=== PATIENT | male | born 1965 | race Caucasian/White ===

== ENCOUNTER → 2021-01-05 12:15 | Outpatient (CLI) | payer OTHER, SELFPAY ==
--- NOTE | ~2021-01-05 | MR_ITS ---
EXAMINATION: MR lumbar spine wo con EXAM DATE: 01/05/2021 12:50 INDICATION: lumbago lumbago. Low back pain, bilateral leg tingling. TECHNIQUE: Multi-sequential, multiplanar MR images of the lumbar spine were obtained without contrast . Sagittal T1, T2, T2 fat saturation images. Axial T2 weighted images. There is no prior study for comparison. FINDINGS: There is mild to moderate disc disease L3-L5 and T10-L2. The conus medullaris terminates at the T12-L1 level and has normal signal intensity and morphology. There are no suspicious marrow sig nal abnormalities. There is 2 mm anterolisthesis L4 on L5. The vertebral bodies are otherwise aligned . Mild to moderate chronic anterior wedging of the T11 vertebral body. There are no suspicious marrow signal abnormalities. Paraspinal soft tissue is unremarkable. Level by level evaluation: T12-L1: There is a mild diffuse disc bulge. Facet arthropathy: Mild. Neural foraminal stenosis: No stenosis. Central canal stenosis: No stenosis. L1-L2: There is a mild diffuse disc bulge. Facet arthropathy: Mild. Neural foraminal stenosis: No stenosis. Central canal stenosis: No stenosis. L2-L3: Disc does not extend beyond the endplate margin. Facet arthropathy: Mild. Neural foraminal stenosis: No stenosis. Central canal stenosis: No stenosis. L3-L4: There is a mild diffuse disc bulge. Facet arthropathy: Mild. Neural foraminal stenosis: Mild to moderate left, mild right. Central canal stenosis: Mild. L4-L5: There is a mild to moderate diffuse disc bulge. Facet arthropathy: Moderate. Neural foraminal stenosis: Moderate bilateral. Central canal stenosis: Moderate. L5-S1: There is a mild to moderate diffuse disc bulge. Facet arthropathy: Mild. Neural foraminal stenosis: Mild to moderate left, mild right. Central canal stenosis: No stenosis. IMPRESSION: 1. L4-5 moderate central canal and neural foraminal stenosis. Reviewed, dictated and finalized at location B. R SOFTENER SERVICER AND INSTALLER
== END ==
PROVIDERS: PCP Family Medicine; Visit Provider Nurse Practitioner Family
DX: M48.061 Spinal stenosis, lumbar region without neurogenic claudication (principal)
CPT/HCPCS: 72148

== ENCOUNTER 2021-01-13 08:18 | Outpatient (CLI) | payer OTHER, SELFPAY ==
[2021-01-13 09:20] LABS: Alanine Aminotransferase 46 U/L (16-63); Alkaline Phosphatase 55 U/L (46-116); Anion Gap 7 mmol/L (8-16); Aspartate Amino Transferase 23 U/L (15-37); Bilirubin,Total 0.4 mg/dL (0.00-1.00); Blood Urea Nitrogen 18 mg/dL (7-18); Calcium 8.7 mg/dL (8.5-10.1); Carbon Dioxide 30 mmol/L (21-32); Chloride 106 mmol/L (98-108); Cholesterol 111 mg/dL (0-200); Estimated Glomerular Filt Rate > 60; Glucose 114 mg/dL (70-99); HDL Direct 47 mg/dL (40-60); LDL Cholesterol Calculated 55 mg/dL (<130); Osmolality Calculated 298 mOsm/kg (285-295); Potassium 4.2 mmol/L (3.5-5.1); Sodium 143 mmol/L (136-145); Total Protein 6.6 g/dL (6.4-8.2); Triglycerides 45 mg/dL (0-150)
== END 2021-01-13 08:19 | disposition home or self-care (01) ==
LOC: CHSLAB 08:21
PROVIDERS: PCP Family Medicine; Visit Provider Family Medicine
DX: E78.5 Hyperlipidemia, unspecified (principal); I10 Essential (primary) hypertension
CPT/HCPCS: 36415; 80053; 80061

== ENCOUNTER → 2021-11-21 10:55 | Outpatient (CLI) | payer OTHER, SELFPAY ==
--- NOTE | ~2021-11-21 | XR_ITS ---
XR lumbar spine 2-3V DATE: 11/21/2021 11:29 INDICATION: Spondylolisthesis TECHNIQUE: AP, lateral and coned lateral lumbosacral views COMPARISON: 01/05/2021 MR lumbar spine FINDINGS: Status post posterior and interbody spinal fusion at L4-5. There is chronic moderate anterior wedge compression fracture at T11, present on 01/05/2021 MR lumbar e xamination. Degenerative spurring of the lower thoracic spine There is mild degenerative disc disease at L1-2 and L3-4. No fracture or bone destruction of the lumbar spine is detected. The sacroiliac joints are intact. IMPRESSION: Status post posterior and interbody spinal fusion Chronic T11 compression fracture deformity Mild degenerative disc disease Reviewed, dictated and finalized at location B. NE EDUCATION MANAGER
== END ==
PROVIDERS: Visit Provider Neurological Surgery
DX: M43.16 Spondylolisthesis, lumbar region (principal); Z98.1 Arthrodesis status; S22.080A Wedge compression fracture of T11-T12 vertebra, initial encounter for closed fracture
CPT/HCPCS: 72100

== ENCOUNTER 2022-01-02 12:46 | Emergency (ER) | payer OTHER, SELFPAY ==
--- NOTE | ~2022-01-02 | CT_ITS ---
EXAMINATION: CT abdomen pelvis wo con DATE: 01/02/2022 14:21 INDICATION: Left flank pain. Microscopic hematuria. TECHNIQUE: Computed tomography (CT) of the abdomen and pelvis was performed without intravenous contr ast. Automated exposure control and iterative reconstruction technique were employed. The dose-length product was 1177.86 mGy-cm. COMPARISON: 08/28/2015 FINDINGS: Normal bibasilar atelectasis. Heart size is normal. Atherosclerotic coronary artery calcific lesions. No pericardial or pleural effusion. A few small gallstones at the dependent aspect of the normal-aren earing gallbladder. Liver, spleen, pancreas and bilateral adrenal glands are normal. Bilateral nephro lithiasis with 3 1 mm stones at the right kidney and a single 1 mm stone in the left kidney. There is an obstructing 4 mm stone at the left ureterovesicular junction with mild left hydroureteronephrosis . Bowels including the appendix are normal. Bladder is normal. Prostatomegaly. No free intraperitonea l gas or fluid. No pathologically enlarged abdominal or pelvic lymphadenopathy. Several surgical clip s along the left inguinal canal. L4 laminectomy with combined instrumented anterior and posterior spi nal fusion at L4-L5. Chronic anterior wedging, mild at T10 and T12 and moderate at T11. IMPRESSION: 1. Lateral nephrolithiasis with obstructing 4 mm stone at the left ureterovesicular junction and mild left hydroureteronephrosis. Reviewed, dictated and finalized at location A. H MANAGER IMPRESSION: 1. Lateral nephrolithiasis with obstructing 4 mm stone at the left ureterovesic ular junction and mild left hydroureteronephrosis.
[2022-01-02 12:53] VITALS: BP 171/92; PULSE 84; RESP 16; TEMP 36.8; O2SAT 97
--- NOTE | 2022-01-02 13:16 | ED.BACK ---
HPI - Back Pain/Injury General Chief Complaint: Back Pain/Injury Stated Complaint: possible kidney stone Time Seen by Provider: 01/02/22 13:17 Source: patient Mode of arrival: ambulatory Limitations: no limitations History of Present Illness HPI Narrative: 56-year-old male a history of back surgery(L4-L5 laminectomy /spinal fusion), chronic anterior wedging of T10 /T12 vertebrae, inguinal hernia repair,renal stones presents to the ER with acute onset -- left CVA angle pain since 8:00 a.m. this morning. Pain radiates around the flank to his groin. No nausea/ vomiting / diarrhea. No fever. MD elicited complaint: back injury ( No history of trauma.) Pertinent past history: prior back pain and kidney stones Onset (ago): hour(s) ( Started 5 hours ago.) Timing: intermittent Severity: severe Similar Symptoms Previously: Yes Quality: aching Location: left flank Radiation: none Exacerbating factors: movement and supine positioning Relieving factors: movement and sitting upright Associated symptoms: denies other symptoms Work related injury: No Related Data Home Medications Medication Instructions Recorded Confirmed amlodipine 10 mg PO DAILY 01/02/22 01/02/22 aspirin 81 mg PO DAILY 01/02/22 01/02/22 diclofenac sodium [Voltaren] 2 g TOPICAL QID 01/02/22 01/02/22 doxazosin 2 mg PO DAILY 01/02/22 01/02/22 meloxicam 15 mg PO DAILY 01/02/22 01/02/22 valsartan 160 mg PO DAILY 01/02/22 01/02/22 zaleplon 10 mg PO HS 01/02/22 01/02/22 Allergies Allergy/AdvReac Type Severity Reaction Status Date / Time cefuroxime [From Ceftin] Allergy Hives Verified 01/02/22 13:07 Review of Systems Review of Systems: All systems reviewed & are unremarkable except as noted in HPI and below Constitutional: Constitutional: Reports as per HPI, Reports no additional constitutional complaints and Reports chills Eyes: Eyes: Reports as per HPI and Reports no additional eye complaints ENT: Reports system reviewed and no additional complaints, except as documented Cardiovascular: Cardiovascular: Reports as per HPI and Reports no additional cardiovascular complaints Respiratory: Respiratory: Reports as per HPI and Reports no additional respiratory complaints Gastrointestinal: Gastrointestinal: Reports as per HPI and Reports no additional gastrointestinal complaints Genitourinary: Genitourinary: Reports no additional male genitourinary complaints and Reports as per HPI Musculoskeletal: Musculoskeletal: Reports no additional musculoskeletal complaints and Reports as per HPI Integumentary/Breasts: Skin/Breast: Reports system reviewed and no additional complaints, except as docu Neurologic: Reports system reviewed and no additional complaints, except as documented and Reports as per HPI Psychiatric: Psychiatric: Reports no additional psychiatric complaints and Reports as per HPI Endocrine: Endocrine: Reports no additional endocrine complaints Hematologic/Lymphatic: Hematologic/Lymphatic: Reports no additional hematologic/lymphatic complaints and Reports as per HPI Allergic/Immunologic: Allergic/Immunologic: Reports no additional allergic/immunologic complaints PMFSH Past Medical History Medical History Back pain with history of spinal surgery Kidney stones Exam Narrative: physical examination is unremarkable. Const: General: no acute distress and alert Orientation/consciousness: patient oriented x3 HENMT: Head: normal to inspection Eyes: Conjunctivae: conjunctivae normal Pupils: Equal, round and reactive pupils present EOM: EOMs intact bilaterally Neck: Neck: normal visual inspection and no lymphadenopathy Chest: Chest palpation & inspection: normal inspection of the chest Resp: Effort & Inspection: normal respiratory effort Auscultation: clear to auscultation bilaterally Cardio: Rate: regular rate Rhythm: regular rhythm GI: GI Palp: Yes Soft to palpation Other: Abd
[2022-01-02 13:40] LABS: Basophils Absolute Auto 0.02 K/mm3 (0.00-0.10); Basophils Percent Auto 0.3 % (0.0-1.0); Eosinophils Absolute Auto 0.03 K/mm3 (0.02-0.50); Eosinophils Percent Auto 0.4 % (1.0-6.0); Hematocrit 43.3 % (40.0-54.0); Hemoglobin 14.7 g/dL (14.0-18.0); Immature Granulocyte Absolute 0.02 K/mm3 (0.00-0.00); Immature Granulocyte Percent A 0.3 % (0.0-0.0); Lymphocytes Absolute Auto 0.71 K/mm3 (1.10-4.50); Lymphocytes Percent Auto 9.8 % (18.0-42.0); Mean Corpuscular HGB Conc 33.9 g/dL (32.0-36.0); Mean Corpuscular Hemoglobin 30.1 pg (27.0-31.0); Mean Corpuscular Volume 88.7 fL (78.0-102.0); Monocytes Percent Auto 6.9 % (2.0-11.0); Neutrophils Absolute Auto 5.9 K/mm3 (1.7-7.2); Neutrophils Percent Auto 82.3 % (50.0-70.0); Platelet Count Result 185 K/mm3 (150-420); Red Blood Count 4.88 M/mm3 (4.70-6.10); Red Cell Distribution Width 13.5 % (11.6-14.4); White Blood Count 7.2 K/mm3 (4.8-10.8)
[2022-01-02 13:42] LABS: Add Urine Microscopic? YES; Appearance Urine Clear (Clear); Bilirubin Urine Negative (Negative); Blood Urine 1+ (Negative); Color Urine Light Yellow (Yellow); Glucose Urine UA Negative (Negative); Ketones Urine Negative (Negative); Leukocyte Esterase Ur Negative (Negative); Nitrate Urine Negative (Negative); Protein Urine Negative (Negative); Urobilinogen Urine 0.2 mg/dL (0.2-1.0)
[2022-01-02] MEDS: SODIUM CHLORIDE 0.9% IV 500 ML 999 ML IV CONT (13:44)
[2022-01-02] MEDS: KETOROLAC 30 MG/ML VIAL (*BKC) IV PUSH (13:46)
[2022-01-02 13:48] LABS: Bacteria Urine None seen /hpf; Squamous Epithelial Cell Urine Rare /hpf (Few); WBC Urine 0-3 /hpf (0-3)
[2022-01-02 13:52] LABS: Prothrombin Time 10.5 Seconds (9.50-12.10)
[2022-01-02 13:56] LABS: Alanine Aminotransferase 43 U/L (16-63); Albumin Level 4.4 g/dL (3.4-5.0); Alkaline Phosphatase 65 U/L (46-116); Anion Gap 10 mmol/L (8-16); Aspartate Amino Transferase 25 U/L (15-37); Bilirubin,Total 0.5 mg/dL (0.00-1.00); Blood Urea Nitrogen 18 mg/dL (7-18); Carbon Dioxide 27 mmol/L (21-32); Chloride 103 mmol/L (98-108); Estimated CRCL calculation 81 ml/min; Estimated Glomerular Filt Rate 58; Glucose 130 mg/dL (70-99); Lipase 124 U/L (73-393); Osmolality Calculated 293 mOsm/kg (285-295); Potassium 4.4 mmol/L (3.5-5.1); Sodium 140 mmol/L (136-145); Total Protein 7.8 g/dL (6.4-8.2)
[2022-01-02 14:27] VITALS: BP 161/93; PULSE 75; RESP 16; TEMP 36.4; O2SAT 97
[2022-01-02 15:23] VITALS: BP 164/95; PULSE 84; RESP 16; TEMP 36.7; O2SAT 97
== END 2022-01-02 15:30 | disposition home or self-care (01) ==
PROVIDERS: Emergency Provider Internal Medicine Critical Care Medicine; PCP Family Medicine
DX: N20.1 Calculus of ureter (principal); R10.9 Unspecified abdominal pain
CPT/HCPCS: 36415; 74176; 80053; 81001; 83690; 85025; 85610; 96361; 96374; 99284; J1885; J7040

== ENCOUNTER 2022-01-26 08:11 | Outpatient (CLI) | payer OTHER, SELFPAY ==
[2022-01-26 09:57] LABS: Alanine Aminotransferase 42 U/L (16-63); Alkaline Phosphatase 55 U/L (46-116); Anion Gap 8 mmol/L (8-16); Aspartate Amino Transferase 23 U/L (15-37); Bilirubin,Total 0.3 mg/dL (0.00-1.00); Blood Urea Nitrogen 20 mg/dL (7-18); Calcium 8.8 mg/dL (8.5-10.1); Carbon Dioxide 26 mmol/L (21-32); Chloride 108 mmol/L (98-108); Cholesterol 131 mg/dL (0-200); Estimated Glomerular Filt Rate > 60; Glucose 108 mg/dL (70-99); HDL Direct 38 mg/dL (40-60); LDL Cholesterol Calculated 86 mg/dL (<130); Osmolality Calculated 297 mOsm/kg (285-295); Potassium 4.6 mmol/L (3.5-5.1); Prostate Specific Antigen 1.4 ng/mL (< OR = 4.0); Sodium 142 mmol/L (136-145); Total Protein 6.8 g/dL (6.4-8.2); Triglycerides 37 mg/dL (0-150)
== END 2022-01-26 08:12 | disposition home or self-care (01) ==
LOC: CHSLAB 08:13
PROVIDERS: PCP Family Medicine; Visit Provider Family Medicine
DX: E78.5 Hyperlipidemia, unspecified (principal); I10 Essential (primary) hypertension; Z12.5 Encounter for screening for malignant neoplasm of prostate
CPT/HCPCS: 36415; 80053; 80061; 84153; G0103

== ENCOUNTER → 2022-03-18 16:06 | Outpatient (CLI) | payer OTHER, SELFPAY ==
--- NOTE | ~2022-03-18 | XR_ITS ---
EXAM: XR lumbar spine 2-3V HISTORY: Spondylolisthesis COMPARISON: 11/21/2021. FINDINGS: L4-5 posterior fusion hardware. Interbody devices in good position. No hardware-related co mplication. Exaggerated lumbar lordosis. Stable T11 compression fracture. Multilevel mild and moderat e disc space narrowing and marginal osteophytosis. Multilevel facet arthropathy. IMPRESSION: Stable lumbar fusion hardware and mild-moderate degenerative changes in the lumbar spine. Reviewed, dictated and finalized at location K. IMPRESSION: Stable lumbar fusion hardware and mild-moderate degenerative changes in the lum bar spine.
== END ==
PROVIDERS: Visit Provider Neurological Surgery
DX: M43.16 Spondylolisthesis, lumbar region (principal); Z98.1 Arthrodesis status; M48.54XA Collapsed vertebra, not elsewhere classified, thoracic region, initial encounter for fracture
CPT/HCPCS: 72100

== ENCOUNTER → 2022-09-06 15:58 | Outpatient (CLI) | payer OTHER, SELFPAY ==
--- NOTE | ~2022-09-06 | XR_ITS ---
EXAMINATION: XR lumbar spine 2-3V DATE: 09/06/2022 16:16 INDICATION: Spondylolisthesis. TECHNIQUE: 3 views of lumbar spine were obtained. COMPARISON: Lumbar radiographs 03/18/2022, CT abdomen and pelvis 01/02/2022 FINDINGS: There is 5 degrees levocurvature of thoracolumbar spine. There is mild chronic anterior wed ging of T12 vertebral body. Partially visualized is a chronic compression fracture of T11. There are changes of anterior and posterior fusion procedures at L4-L5 with interbody devices and pedicle screw s. There is mildly decreased disc height at T12-L1 and L3-L4. There is multilevel mild facet joint os teoarthritis. IMPRESSION: 1. Anterior and posterior fusion procedures at L4-L5. 2. Mild lumbar spondylosis. Reviewed, dictated and finalized at location B.
== END ==
PROVIDERS: PCP Neurological Surgery; Visit Provider Neurological Surgery
DX: M43.10 Spondylolisthesis, site unspecified (principal); M48.54XA Collapsed vertebra, not elsewhere classified, thoracic region, initial encounter for fracture; M47.816 Spondylosis without myelopathy or radiculopathy, lumbar region; Z98.1 Arthrodesis status
CPT/HCPCS: 72100

== ENCOUNTER 2022-09-09 07:14 | Outpatient (CLI) | payer OTHER, SELFPAY ==
[2022-09-09 08:01] LABS: Cholesterol 144 mg/dL (0-200); Free T4 Free Thyroxine 0.86 ng/dL (0.76-1.46); HDL Direct 41 mg/dL (40-60); LDL Cholesterol Calculated 81 mg/dL (<130); NT Pro B Type Natriuretic Pept 23 pg/mL (0-125); Thyroid Stimulating Hormone 1.21 uIU/mL (0.36-3.74); Triglycerides 109 mg/dL (0-150)
== END 2022-09-09 07:15 | disposition home or self-care (01) ==
LOC: CHSLAB 07:20
PROVIDERS: Visit Provider Internal Medicine Cardiovascular Disease
DX: R06.00 Dyspnea, unspecified (principal); R53.83 Other fatigue
CPT/HCPCS: 36415; 80061; 83880; 84439; 84443

== ENCOUNTER 2022-10-07 07:00 | Outpatient (CLI) | payer OTHER, SELFPAY ==
[2022-10-07 07:41] LABS: Anion Gap 6 mmol/L (8-16); Blood Urea Nitrogen 19 mg/dL (7-18); Calcium 8.8 mg/dL (8.5-10.1); Carbon Dioxide 29 mmol/L (21-32); Chloride 105 mmol/L (98-108); Estimated Glomerular Filt Rate > 60; Glucose 113 mg/dL (70-99); NT Pro B Type Natriuretic Pept 18 pg/mL (0-125); Osmolality Calculated 293 mOsm/kg (285-295); Sodium 140 mmol/L (136-145)
[2022-10-12 03:32] LABS: Lipoprotein A 26 nmol/L (<75)
== END 2022-10-07 07:01 | disposition home or self-care (01) ==
LOC: CHSLAB 07:04
PROVIDERS: Visit Provider Internal Medicine Cardiovascular Disease
DX: R06.09 Other forms of dyspnea (principal); R53.83 Other fatigue; I10 Essential (primary) hypertension; R94.39 Abnormal result of other cardiovascular function study
CPT/HCPCS: 36415; 80048; 83695; 83880

== ENCOUNTER 2024-01-03 08:12 | Outpatient (CLI) | payer OTHER, SELFPAY ==
[2024-01-03 08:48] LABS: Basophils Absolute Auto 0.03 K/mm3 (0.00-0.10); Basophils Percent Auto 0.6 % (0.0-1.0); Eosinophils Absolute Auto 0.04 K/mm3 (0.02-0.50); Eosinophils Percent Auto 0.8 % (1.0-6.0); Hematocrit 40.4 % (40.0-54.0); Hemoglobin 13.4 g/dL (14.0-18.0); Immature Granulocyte Absolute 0.05 K/mm3 (0.00-0.00); Lymphocytes Absolute Auto 1.01 K/mm3 (1.10-4.50); Lymphocytes Percent Auto 20.2 % (18.0-42.0); Mean Corpuscular HGB Conc 33.2 g/dL (32.0-36.0); Mean Corpuscular Hemoglobin 29.8 pg (27.0-31.0); Mean Corpuscular Volume 89.8 fL (78.0-102.0); Mean Platelet Volume 10.3 fl (8.7-11.0); Neutrophils Absolute Auto 3.4 K/mm3 (1.7-7.2); Neutrophils Percent Auto 67.4 % (50.0-70.0); Platelet Count Result 208 K/mm3 (150-420); Red Cell Distribution Width 12.9 % (11.6-14.4)
== END 2024-01-03 08:13 | disposition home or self-care (01) ==
PROVIDERS: PCP Family Medicine
DX: I25.10 Atherosclerotic heart disease of native coronary artery without angina pectoris (principal); I25.84 Coronary atherosclerosis due to calcified coronary lesion
CPT/HCPCS: 36415; 85025

== ENCOUNTER 2024-03-13 07:58 | Outpatient (CLI) | payer OTHER, SELFPAY ==
[2024-03-13 08:57] LABS: Basophils Absolute Auto 0.03 K/mm3 (0.00-0.10); Basophils Percent Auto 0.6 % (0.0-1.0); Eosinophils Absolute Auto 0.04 K/mm3 (0.02-0.50); Eosinophils Percent Auto 0.8 % (1.0-6.0); Hemoglobin 13.5 g/dL (14.0-18.0); Immature Granulocyte Absolute 0.03 K/mm3 (0.00-0.00); Immature Granulocyte Percent A 0.6 % (0.0-0.0); Lymphocytes Absolute Auto 1.03 K/mm3 (1.10-4.50); Lymphocytes Percent Auto 20.8 % (18.0-42.0); Mean Corpuscular HGB Conc 32.1 g/dL (32-36); Mean Corpuscular Hemoglobin 29.5 pg (27.0-31.0); Mean Corpuscular Volume 91.9 fL (78.0-102.0); Mean Platelet Volume 10.1 fl (8.7-11.0); Monocytes Absolute Auto 0.53 K/mm3 (0.10-0.90); Monocytes Percent Auto 10.7 % (2.0-11.0); Neutrophils Absolute Auto 3.29 K/mm3 (1.70-7.20); Neutrophils Percent Auto 66.5 % (50.0-70.0); Platelet Count Result 204 K/mm3 (150-420); Red Blood Count 4.57 M/mm3 (4.70-6.10); Red Cell Distribution Width 13.1 % (11.6-14.4)
[2024-03-13 09:11] LABS: INR 0.9; Prothrombin Time 10.2 Seconds (9.50-12.1)
[2024-03-13 09:33] LABS: Anion Gap 7 mmol/L (4-12); Blood Urea Nitrogen 17 mg/dL (7-18); Calcium 8.8 mg/dL (8.5-10.1); Carbon Dioxide 31 mmol/L (21-32); Chloride 104 mmol/L (98-108); Estimated Glomerular Filt Rate > 60; Glucose 122 mg/dL (70-99); Osmolality Calculated 296 mOsm/kg (285-295); Potassium 4.4 mmol/L (3.5-5.1); Sodium 142 mmol/L (136-145)
== END 2024-03-13 07:59 | disposition home or self-care (01) ==
LOC: CHSLAB 08:02
PROVIDERS: PCP Family Medicine; Visit Provider Internal Medicine Cardiovascular Disease
DX: I25.10 Atherosclerotic heart disease of native coronary artery without angina pectoris (principal); I25.84 Coronary atherosclerosis due to calcified coronary lesion; R94.39 Abnormal result of other cardiovascular function study; I10 Essential (primary) hypertension
CPT/HCPCS: 36415; 80048; 85025; 85610

== ENCOUNTER 2024-03-29 07:02 | Outpatient (CLI) | payer OTHER, SELFPAY ==
[2024-03-29 07:25] LABS: Hematocrit 41.4 % (40.0-54.0); Hemoglobin 13.4 g/dL (14.0-18.0)
[2024-03-29 07:36] LABS: Blood Urea Nitrogen 18 mg/dL (7-18); Estimated Glomerular Filt Rate > 60
== END 2024-03-29 07:03 | disposition home or self-care (01) ==
LOC: CHSLAB 07:08
PROVIDERS: Visit Provider Internal Medicine Cardiovascular Disease
DX: R94.39 Abnormal result of other cardiovascular function study (principal)
CPT/HCPCS: 36415; 82565; 84520; 85014; 85018

== ENCOUNTER 2024-09-18 08:31 | Outpatient (CLI) | payer OTHER, SELFPAY ==
[2024-09-18 09:02] LABS: Hemoglobin 13.6 g/dL (14.0-18.0); Mean Corpuscular Hemoglobin 30.9 pg (27.0-31.0); Mean Corpuscular Volume 90.9 fL (78.0-102.0); Mean Platelet Volume 10.1 fl (8.7-11.0); Platelet Count Result 183 K/mm3 (150-420); Red Cell Distribution Width 13.2 % (11.6-14.4)
[2024-09-18 10:06] LABS: Anion Gap 9 mmol/L (4-12); Blood Urea Nitrogen 13 mg/dL (7-18); Calcium 9.1 mg/dL (8.5-10.1); Carbon Dioxide 29 mmol/L (21-32); Chloride 103 mmol/L (98-108); Cholesterol 97 mg/dL (0-200); Estimated Glomerular Filt Rate > 60; Folic Acid 19.7 ng/mL (8.6->20); Free T4 Free Thyroxine 0.71 ng/dL (0.76-1.46); Glucose 116 mg/dL (70-99); HDL Direct 45 mg/dL (40-60); Iron 72 ug/dL (65-175); LDL Cholesterol Calculated 37 mg/dL (<130); Osmolality Calculated 293 mOsm/kg (285-295); Percent Iron Saturation 20 % (12-57); Potassium 4.1 mmol/L (3.5-5.1); Sodium 141 mmol/L (136-145); Triglycerides 75 mg/dL (0-150); Vitamin B12 581 pg/mL (193-986)
== END 2024-09-18 08:32 | disposition home or self-care (01) ==
LOC: CHSLAB 08:37
DX: Z01.818 Encounter for other preprocedural examination (principal); I25.10 Atherosclerotic heart disease of native coronary artery without angina pectoris
CPT/HCPCS: 36415; 80048; 80061; 82607; 82746; 83540; 83550; 84439; 85027

== ENCOUNTER 2025-05-07 07:15 | Outpatient (CLI) | payer OTHER, SELFPAY ==
--- OUTSIDE RECORDS SUMMARY | 2025-05-07 07:22 | XMS_ITS | Clinical Summary ---
Author Organization [facility] Address [address] [place] [address] Care Team Providers Care Epic Application Coordinator Name Role Phone Yobany Hurd MD Primary Care Provider [phone] Rachel Abdul MD Unavailable [phone] Parker Santillan MD Unavailable [phone] Allergies Active Allergy Reactions Criticality Noted Date Comments Cefuroxime Hives Medium 05/25/2019 Medications zaleplon (SONATA) 10 mg capsule Take 1 capsule (10 mg total) by mouth nightly 1 9 Active amLODIPine (NORVASC) 10 mg tablet Take 1 tablet (10 mg total) by mouth daily Active valsartan (DIOVAN) 160 mg tablet Take 1 tablet (160 mg total) by mouth 2 (two) times a day Active atorvastatin (LIPITOR) 40 mg tablet Take 1 tablet (40 mg total) by mouth nightly 2 Active chlorthalidone (HYGROTON) 25 mg tablet Take 1 tablet (25 mg total) by mouth daily 2 Active gabapentin (NEURONTIN) 600 mg tablet Take 1 tablet (600 mg total) by mouth 2 (two) times a day Active doxazosin (CARDURA) 2 mg tablet Take 1 tablet (2 mg total) by mouth nightly 3 Active aspirin 81 mg enteric coated tablet Take 1 tablet (81 mg total) by mouth daily Active MULTIVITAMIN ORAL Take 1 tablet by mouth nightly Active zaleplon (SONATA) 5 mg capsule Take 1 capsule (5 mg total) by mouth nightly Active clopidogreL (PLAVIX) 75 mg tablet Take 1 tablet (75 mg total) by mouth daily 4 Active traMADoL (ULTRAM) 50 mg tablet Take 1 tablet (50 mg total) by mouth every 6 (six) hours as needed for pain 15 tablet 4 Active cholecalciferol (VITAMIN D-3) 5,000 unit tablet Take 1 tablet (5,000 Units total) by mouth nightly Active magnesium gluconate 200 mg tabletIndicatio ns:hypomagnesem ia Take 2.5 tablets (500 mg total) by mouth nightly Active nitroglycerin (NITROSTAT) 0.[address] 1 tablet (0.4 mg total) under the tongue every 5 (five) minutes as needed for chest pain 4 07/23/20 25 Active oxyCODONE-aceta minophen (PERCOCET) 5-325 mg per tablet Take 1 tablet by mouth every 6 (six) hours as needed for pain 40 tablet 5 Active Additional Information Patient not taking.Reported on 03/08/2025 Active Problems Problem Noted Date Diagnosed Date Arthritis of right knee 12/23/2024 Primary osteoarthritis of right knee 10/25/2024 S/P percutaneous translumina l angioplasty (INSECTICIDE SPRAYER) with stent placement 07/22/2024 Carpal tunnel syndrome, bilateral 12/04/2023 Right carpal tunnel syndrome 10/20/2023 Left carpal tunnel syndrome 10/20/2023 Abnormal stress test 10/09/2023 Coronary artery calcification 10/09/2023 Essential (primary) hypertension 07/12/2022 Fatigue 07/12/2022 Spondylolisthesis at L4-L5 level 09/05/2021 Primary osteoarthritis of both knees 05/25/2019 Encounters Date Type Department Care Team Description 03/08/2025 2:30 PM CDT Office Visit [facility] [address] [place] [address] [address] [place] [phone] Parker Santillan MD Status post total right knee replacement (Primary Dx) 02/14/2025 3:15 PM CDT Therapy [facility] Physical Therapy [address] [place] [address] [address] [place] [address] Krista Blair, PT Status post total right knee replacement (Primary Dx) 02/09/2025 2:15 PM CDT Therapy [facility] Therapy [address] [place] [id number] Brigitte Mendez, INSECTICIDE SPRAYER Status post total right knee replacement (Primary Dx) 02/07/2025 3:30 PM CDT Therapy [facility] Physical Therapy [address] [place] [id number] Bridget Roman, PT Status post total right knee replacement (Primary Dx); Primary osteoarthritis of right knee from Last 3 Months Surgical History Surgery Date Site/Laterality Comments KNEE ARTHROSCOPY Bilateral Yayo, last one right BACK SURGERY 08/31/2021 - 09/30/2021 Lumbar fusion-POSTERIOR LUMBAR INTERBODY FUSION L4-5 CARDIAC STENT PLACEMENT 03/25/2024 1 stent CARPAL TUNNEL RELEASE 08/31/2024 - 09/30/2024 Bilateral Medical History Medical History Date Comments Osteoarthritis Hypertension Kidney stone h/o S/P percutaneous translumina l angioplasty (INSECTICIDE SPRAYER) with stent placement 07/22/2024 Coronary artery disease Obesity Sleep apnea cpap at night Hyperlipidemia Insomnia Primary osteoarthritis of both knees Family History Medical History Relation Name Comments Diabetes Father Diabetes Mother Stroke Mother Heart disease Other Relation Name Status Comments Father Mother Other Social History Tobacco Use Types Packs/Day Years Used Date Smoking Tobacco: Never Smokeless Tobacco: Never Tobacco Cessation:Counseling Given: Not Answered Alcohol Use Standard Drinks/Week Comments Yes 0 (1 standard drink = 0.6 oz pur e alcohol) [facility] Utilities Answer Date Recorded In the past 12 months has Network, oil, or water [employer] threatened to shut off services in your home? No 12/23/2024 Social Connection and Isolation Panel [NHANES] A nswer Date Recorded In a typical week, how many times do you talk on the phone with family, friends, or neighbors? Three times a week 12/23/19 25 How often do you get togethe r with friends or relatives? Three times a week 12/23/2024 How often do you attend chur or scientology services? Never 12/23/2024 Do you belong to any clubs o r organizations such as cheondoism groups, unions, fraternal or athletic groups, or school groups? No 12/23/2024 How often do you attend meet ings of the clubs or organizations you belong to? 1 to 4 times per year 12/23/2024 Are you , , di vorced, , never , or living with a partner? 12/23/2024 AUDIT-C Answer Date Recorded Q1: How often do you have a drink containing alcohol? 4 or more times a week 12/13/2024 Q2: How many drinks containi ng alcohol do you have on a typical day when you are drinking? 3 or 4 Q3: How often do you have si x or more drinks on one occasion? Less than monthly 12/13/2024 Overall Financial Resource Strain (CARDIA) Answe r Date Recorded How hard is it for you to pa y for the very basics like food, housing, medical care, and heating? Not hard at all 12/23/2024 Hunger Vital Sign Answer Date Recorded Within the past 12 months, y ou worried that your food would run out before you got the money to buy more. Never true 12/23/19 25 Within the past 12 months, t he food you bought just didn't last and you didn't have money to get more. Never true 12/23/2024 PRAPARE - Transportation Answer Date Re corded In the past 12 months, has l ack of transportation kept you from medical appointments or from getting medications? No 12/02 In the past 12 months, has l ack of transportation kept you from meetings, work, or from getting things needed for daily living? No 12/23/2024 Housing Stability Vital Sign Answer Romario e Recorded In the last 12 months, was t here a time when you were not able to pay the mortgage or rent on time? No 12/23/2024 In the past 12 months, how m any times have you moved where you were living? 0 12/23/2024 At any time in the past 12 m [facility], were you homeless or living in a group home (including now)? No 12/23/2024 Personal Safety Answer Date Recorded Have you ever been in or are you currently in a harmful physical or emotional relationship or is someone making you feel afraid or unsafe? 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 on fi le Not on file Not on file Obstetrics History Last Filed Vital Signs Vital Sign Reading Time Taken Comments Blood Pressure 137/76 12/24/2024 7:24 AM ASSISTANT CHIEF ENGINEER Pulse 82 12/24/2024 8:17 AM ASSISTANT CHIEF ENGINEER Temperature 37 C (98.6 F) 12/24/2024 7:24 AM ASSISTANT CHIEF ENGINEER Respiratory Rate 20 12/24/2024 7:24 AM ASSISTANT CHIEF ENGINEER Oxygen Saturation 94% 12/24/2024 7:24 AM ASSISTANT CHIEF ENGINEER Inhaled Oxygen Concentration - - Weight 129.3 kg (285 lb) 01/21/2025 10:11 AM ASSISTANT CHIEF ENGINEER Height 188 cm (6' 2) 01/21/2025 10:11 AM ASSISTANT CHIEF ENGINEER Body Mass Index 36.59 01/21/2025 10:11 AM ASSISTANT CHIEF ENGINEER Plan of Treatment Health Maintenance Due Date Last Done Comments Colon Cancer Screening-Colonoscopy 1966 Depression Screening 1966 Hepatitis C Screening 1966 Prostate Cancer Screening-PSA 1966 Hepatitis B Screening 1984 Regular Well Visit/Exam 18-64 1984 Zoster Vaccine (1 of 2) 2016 Covid-19 Vaccine (3 - season) 2024 02/10/2021, 01/13/2021 Influenza Vaccine (Season Ended) 2025 08/12/2023, 08/16/2022, 08/14/2021, Additional history exists DTaP/Tdap/Td Vaccine (2 - Td or Tdap) 02/22/2030 02/23/2020 Pneumococcal vaccine <65 Aged Out No longer eligible based on patient's age to complete this topic Medical Devices Implanted Type Area Reprographics Technician Device Identifier Shelf Expiration Date Model / Serial / Lot Stent Heart Cage And Hardware Back [employer] Simplex P Radiopaque Full Dose Cement Bone Sterile 6191-1-010 - [id number] Implanted:Qty: 1 on 12/23/2024 by Parker Santillan MD at [facility] Right: Knee [employer] 11/30/2026 6191-1-010 / / [id number] [employer] tho Nyla Ii 35mm Resurface Component Patellar [id number] - [id number] Implanted:Qty: 1 on 12/23/2024 by Parker Santillan MD at [facility] Right: Knee [employer]O rtho [id number] 06/30/2034 [id number] / / [id number] [employer]/Or tho Legion 10mm Posterior Stabilize High Flexion Knee 7-8 Insert [id number] - [id number] Implanted:Qty: 1 on 12/23/2024 by Parker Santillan MD at [facility] Right: Knee [employer] rtho [id number] 08/18/2034 [id number] / / [id number] [employer]/Or tho Nyla Ii Cement Knee Right 7 Baseplate Tibial Titanium [id number] - [id number] Implanted:Qty: 1 on 12/23/2024 by Parker Santillan MD at [facility] Right: Knee [employer] rtho [id number] 12/06/2032 [id number] / / [id number] [employer]/Or tho Nyla Ii Legion Spc Posterior Stabilize Knee Right 7 Component [id number] - [id number] Implanted:Qty: 1 on 12/23/2024 by Parker Santillan MD at [facility] Right: Knee [employer]o [id number] 05/20/2034 [id number] / / [id number] Insurance [facility] PL[facility] Advance Directives For more information, please contact: [phone] * Full Code (Latest Code Status on File) Date Activated Date Inactivated Comments 12/23/2024 1:15 PM 12/24/2024 4:37 PM Care Teams Epic Application Coordinator Relationship Specialty Start Date End Date Yobany Hurd MD [address] [facility] [address] [place] [address] PCP - General Family Medicine 10/14/23 Rachel Abdul MD [address] [address] Referring Physician Cardiovascular Disease 09/13/24 Parker Santillan MD [address] [address] Consulting Physician Orthopedic Surgery 12/24/24
--- OUTSIDE RECORDS SUMMARY | 2025-05-07 07:22 | XMS_ITS | Referral Summary ---
Author Organization [facility] Address [address] [place] [id number] Care Team Providers Care Children'S Author Name Role Phone Yobany Hurd MD Primary Care Provider [phone] Rachel Abdul MD Unavailable [phone] Parker Santillan MD Unavailable [phone] Encounters Date Type Department Care Team Description 03/08/2025 2:30 PM CDT Office Visit [facility] Medicine [address] [place] [address] [address] [place] [address] Parker Santillan MD Status post total right knee replacement (Primary Dx) 02/14/2025 3:15 PM CDT Therapy [facility] Physical Therapy [address] [place] [address] [phone] Krista Blair, PT Status post total right knee replacement (Primary Dx) 02/09/2025 2:15 PM CDT Therapy [facility] Physical Therapy [address] [place] [phone] Brigitte Mendez, FHA UNDERWRITER Status post total right knee replacement (Primary Dx) 02/07/2025 3:30 PM CDT Therapy [facility] Physical Therapy [address] [place] [address] [phone] Bridget Roman, PT Status post total right knee replacement (Primary Dx); Primary osteoarthritis of right knee from Last 3 Months Allergies Active Allergy Reactions Criticality Noted Date [...] knee 10/25/2024 S/P percutaneous translumina l angioplasty (FHA UNDERWRITER) with stent placement 07/22/2024 Carpal tunnel syndrome, bilateral 12/04/2023 Right carpal tunnel syndrome 10/20/2023 Left carpal tunnel syndrome 10/20/2023 Abnormal stress test 10/09/2023 Coronary artery calcification 10/09/2023 Essential (primary) hypertension 07/12/2022 Fatigue 07/12/2022 Spondylolisthesis at L4-L5 level 09/05/2021 Primary osteoarthritis of both knees 05/25/2019 Social History Tobacco Use Types Packs/Day Years Used Date Smoking Tobacco: Never Smokeless Tobacco: Never Tobacco Cessation:Counseling Given: Not Answered Alcohol Use Standard Drinks/Week Comments Yes 0 (1 standard drink = 0.6 oz pur e alcohol) [facility] Utilities Answer Date Recorded In the past 12 months has [employer], gas, oil, or water [employer] threatened to shut off services in your home? No 12/23/2024 Social Connection and Isolation Panel [NHANES] A nswer Date Recorded In a typical week, how many times do you talk on the phone with family, friends, or neighbors? Three times a week 12/23/19 How often do you get togethe r with friends or relatives? Three times a week 12/23/2024 How often do you attend chur ch or faith services? Never 12/23/2024 Do you belong to any clubs o r organizations such as evangelical groups, unions, fraternal or athletic groups, or [...] any time in the past 12 m [facility], were you homeless or living in a care home (including now)? No 12/23/2024 Personal Safety Answer Date Recorded Have you ever been in or are you currently in a harmful physical or emotional relationship or is someone making you feel afraid or unsafe? 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 Not on file Not on file Last Filed Vital Signs Vital Sign Reading Time Taken Comments Blood Pressure 137/76 12/24/2024 7:24 AM [employer] Pulse 82 12/24/2024 8:17 AM [employer] Temperature 37 C (98.6 F) 12/24/2024 7:24 AM [employer] Respiratory Rate 20 12/24/2024 7:24 AM [employer] Oxygen Saturation 94% 12/24/2024 7:24 AM [employer] Inhaled Oxygen Concentration - - Weight 129.3 kg (285 lb) 01/21/2025 10:11 AM [employer] Height 188 cm (6' 2) 01/21/2025 10:11 AM [employer] Body Mass Index 36.59 01/21/2025 10:11 AM [employer] Plan of Treatment Not on file Medical Devices Implanted Type Area Special Equipment Technician Device Identifier Shelf Expiration Date Model / Serial / Lot Stent Heart Cage And Hardware Back [employer] Simplex P Radiopaque Full Dose Cement Bone Sterile 6191-1-010 - [id number] Implanted:Qty: 1 on 12/23/2024 by Parker Santillan MD at [facility] Right: Knee [employer] 11/30/2026 6191-1-010 / / [id number] [employer] Nyla Ii 35mm Resurface Component Patellar [id number] - [id number] Implanted:Qty: 1 on 12/23/2024 by Parker Santillan MD at [facility] Right: Knee [employer] [id number] 06/30/2034 [id number] / / [id number] [employer]Or [employer] Legion 10mm Posterior Stabilize High Flexion Knee 7-8 Insert [id number] - [id number] Implanted:Qty: 1 on 12/23/2024 by Parker Santillan MD at [facility] Right: Knee [employer] [id number] 08/18/2034 [id number] / / [id number] [employer] Nyla Ii Cement Knee Right 7 Baseplate Tibial Titanium [id number] - [id number] Implanted:Qty: 1 on 12/23/2024 by Parker Santillan MD at [facility] Right: Knee [employer] [id number] 12/06/2032 [id number] / / [id number] [employer] Nyla Ii Legion Spc Posterior Stabilize Knee Right 7 Component [id number] - [id number] Implanted:Qty: 1 on 12/23/2024 by Parker Santillan MD at [facility] Right: Knee [employer] [id number] 05/20/2034 [id number] Insurance [facility] H[facility]PP[facility] Address: [place] [address] [id number] [id number] Advance Directives For more information, please contact: [phone] * Full Code (Latest Code Status on File) Date Activated Date Inactivated Comments 12/23/2024 1:15 PM 12/24/2024 4:37 PM Care Teams Children'S Author Relationship Specialty Start Date End Date Yobany Hurd MD [address] [facility] [address] [place] [address] PCP - General Family Medicine 10/14/23 Rachel Abdul MD [address] [facility] [address] [place] [address] Referring Physician Cardiovascular Disease 09/13/24 Parker Santillan MD [address] [place] [address] Consulting Physician Orthopedic Surgery 12/24/24
[2025-05-07 08:00] LABS: Alanine Aminotransferase 37 U/L (6-50); Albumin Level 4.1 g/dL (3.5-5.1); Alkaline Phosphatase 67 U/L (38-126); Anion Gap 5 mmol/L (4-12); Aspartate Amino Transferase 34 U/L (17-59); Bilirubin,Total 0.6 mg/dL (0.2-1.3); Blood Urea Nitrogen 18 mg/dL (9-20); Carbon Dioxide 28 mmol/L (22-30); Chloride 106 mmol/L (98-107); Cholesterol 93 mg/dL (0-200); Estimated Glomerular Filt Rate > 60; Glucose 124 mg/dL (65-110); HDL Direct 37 mg/dL; LDL Cholesterol Calculated 37 mg/dL (<130); Osmolality Calculated 290 mOsm/kg (285-295); Potassium 4.1 mmol/L (3.4-5.0); Sodium 139 mmol/L (137-145); Total Protein 6.6 g/dL (6.3-8.2); Triglycerides 94 mg/dL (<150)
[2025-05-07 08:31] LABS: Prostate Specific Antigen 1.2 ng/mL (< OR = 4.0)
== END 2025-05-07 07:16 | disposition home or self-care (01) ==
LOC: CHSLAB 07:19
PROVIDERS: PCP Family Medicine
DX: I25.10 Atherosclerotic heart disease of native coronary artery without angina pectoris (principal); Z12.5 Encounter for screening for malignant neoplasm of prostate; E78.5 Hyperlipidemia, unspecified
CPT/HCPCS: 36415; 80053; 80061; 84153; G0103

== ENCOUNTER 2025-06-18 07:46 | Outpatient (CLI) | payer OTHER, SELFPAY ==
--- OUTSIDE RECORDS SUMMARY | 2025-06-18 07:50 | XMS_ITS | Clinical Summary ---
Author Organization [facility] Address [address] [place] [address] Care Team Providers Care Animal Nursery Worker Name Role Phone Yobany Hurd MD Primary Care Provider [phone] Rachel Abdul MD Unavailable [phone] Parker Santillan MD Unavailable [phone] Allergies Active Allergy Reactions Criticality Noted Date [...] Active doxazosin (CARDURA) 2 mg tablet Take 10 tablets (20 mg total) by mouth nightly 3 Active [...] needed for pain 15 tablet 4 Active cholecalcifero l (VITAMIN D-3) 5,000 unit tablet Take 1 tablet (5,000 Units total) by mouth nightly Active magnesium gluconate 200 mg tabletIndicati ons:hypomagnes emia Take 2.5 tablets (500 mg total) by mouth nightly Active nitroglycerin (NITROSTAT) 0.[address] 1 tablet (0.4 mg total) under the tongue every 5 (five) minutes as needed for chest pain 4 07/23/20 25 Active oxyCODONE-acet aminophen (PERCOCET) 5-325 mg per tablet Take 1 tablet by mouth every 6 (six) hours as needed for pain 40 tablet 5 Active Additional Information Patient not taking.Reported on 03/08/2025 amoxicillin (AMOXIL) 500 mg tablet/capsule Take 1 tablet/capsule (500 mg total) by mouth daily 4 tablet/capsu le 5 Active meloxicam (MOBIC) 15 mg tablet Take 1 tablet (15 mg total) by mouth daily Active bisacodyl EC (DULCOLAX EC) 5 mg EC tabletIndicati ons:constipati on Take 1 tablet (5 mg total) by mouth daily 8 tablet 5 06/10/20 25 Discontin ued(Stop Taking at Discharge ) Active Problems Problem Noted Date Diagnosed Date Encounter for screening colonoscopy 05/16/2025 Arthritis of right knee 12/23/2024 Primary osteoarthritis of right knee 10/25/2024 S/P percutaneous translumina l angioplasty (FIRER RETORT) with stent placement 07/22/2024 Carpal tunnel syndrome, bilateral 12/04/2023 Right carpal tunnel syndrome 10/20/2023 Left carpal tunnel syndrome 10/20/2023 Abnormal stress test 10/09/2023 Coronary artery calcification 10/09/2023 Essential (primary) hypertension 07/12/2022 Fatigue 07/12/2022 Spondylolisthesis at L4-L5 level 09/05/2021 Primary osteoarthritis of both knees 05/25/2019 Encounters Date Type Department Care Team Description 06/14/2025 Results Follow-Up [facility] Gastroenterology at [address] [place] [address] Hernan Boogie MD Surgical pathology 06/10/2025 9:34 AM CDT Anesthesia Event [facility] [address] [place] [address] Steven Gaspar, 06/10/2025 8:30 AM CDT - 06/10/2025 9:00 AM CDT Surgery [facility] [address] [place] [address] Hernan Boogie MD COLON REMOVAL SNARE 06/10/2025 7:02 AM CDT - 06/10/2025 10:54 AM CDT Hospital Encounter [facility] [address] [place] [address] Hernan Boogie MD Encounter for screening colonoscopy Discharge Disposition: Discharge to home or self care 05/23/2025 Telephone [facility] Orthopedics and Sports Medicine [address] [facility] [address] [place] [address] Parker Santillan MD Dental Problem 05/16/2025 Orders Only [facility] Medical [facility] Gastroenterology at [address] [place] [address] Hernan Boogie MD Encounter for screening colonoscopy (Primary Dx) from Last 3 Months Surgical History Surgery Date Site/Laterality Comments KNEE ARTHROSCOPY Bilateral right knee replacement, arthroscopy both knees BACK SURGERY 08/31/2021 - 09/30/2021 Lumbar fusion-POSTERIOR LUMBAR INTERBODY FUSION L4-5 CARDIAC STENT PLACEMENT 03/25/2024 1 stent CARPAL TUNNEL RELEASE 08/31/2024 - 09/30/2024 Bilateral Medical History Medical History Date Comments Osteoarthritis Hypertension Kidney stone h/o S/P percutaneous translumina l angioplasty (FIRER RETORT) with stent placement 07/22/2024 Coronary artery disease [...] drink = 0.6 oz pur e alcohol) [facility] Utilities Answer Date Recorded In the past 12 months has th e electric, gas, oil, or water company threatened to shut off services in your [...] often do you attend chur ch or christianity services? Never 12/23/2024 Do you belong to any clubs o r organizations such as quaker groups, unions, fraternal or athletic groups, or school groups? No 12/23/2024 How often do you attend meet ings of the clubs or organizations you belong to? 1 to 4 times per year 12/23/2024 Are you , , di vorced, , never , or living with a partner? 12/23/2024 AUDIT-C Answer Date Recorded Q1: How often do you have a drink containing alc ohol? 2-4 times a month 06/10/2025 Q2: How many drinks containi ng alcohol do you have on a typical day when you are drinking? 1 or 2 06/10/2025 Q3: How often do you have si x or more drinks on one occasion? Never 06/10/2025 Overall Financial Resource Strain (CARDIA) Answe r [...] any time in the past 12 m [facility], were you homeless or living in a usp (including now)? No 12/23/2024 Personal Safety Answer Date Recorded Have you ever been in or are you currently in a harmful physical or emotional relationship or is someone making you feel afraid or unsafe? 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 on file Not on file Obstetrics History Last Filed Vital Signs Vital Sign Reading Time Taken Comments Blood Pressure 110/72 06/10/2025 10:20 AM CDT Pulse 74 06/10/2025 10:20 AM CDT Temperature 36.4 C (97.6 F) 06/10/2025 10:01 AM CDT Respiratory Rate 19 06/10/2025 10:20 AM CDT Oxygen Saturation 96% 06/10/2025 10:20 AM CDT Inhaled Oxygen Concentration - - Weight 120.2 kg (265 lb) 06/10/2025 8:21 AM CDT Height 188 cm (6' 2) 01/21/2025 10:11 AM WORKERS COMPENSATION ATTORNEY Body Mass Index 34.02 01/21/2025 10:11 AM WORKERS COMPENSATION ATTORNEY Plan of Treatment Health Maintenance Due Date Last Done Comments Depression Screening 1965 Hepatitis C Screening 1965 Prostate Cancer Screening-PSA 1966 Hepatitis B Screening 1984 Regular Well Visit/Exam 18-64 1984 Zoster Vaccine (1 of 2) 2016 Covid-19 Vaccine (3 - season) 2024 02/10/2021, 01/13/2021 Influenza Vaccine (#1) 2025 3, 08/16/2022, 08/14/2021, Additional history exists DTaP/Tdap/Td Vaccine (2 - Td or Tdap) 02/22/2030 02/23/2020 Colon Cancer Screening-Colonoscopy 06/10/2035 06/10/2025 Colon Cancer Screening-CT Colonography Discontinued 06/10/2025 Colon Cancer Screening-DNA Stool Discontinued 06/10/2025 Colon Cancer Screening-FIT Discontinued 06/10/2025 Colon Cancer Screening-Sigmoidoscopy Discontinued 06/10/2025 Pneumococcal vaccine <65 Aged Out No longer eligible based on patient's age to complete this topic Medical Devices Implanted Type Area Family Consumer Scientist Device Identifier Shelf Expiration Date Model / Serial / Lot Stent Heart Cage And Hardware Back [employer] Simplex P Radiopaque Full Dose Cement Bone Sterile 6191-1-010 - [id number] Implanted:Qty: 1 on 12/23/2024 by Parker Santillan MD at [facility] Right: Knee [employer] 11/30/2026 6191-1-010 / / [id number] [employer]/Or tho Nyla Ii 35mm Resurface Component Patellar [id number] - [id number] Implanted:Qty: 1 on 12/23/2024 by Parker Santillan MD at [facility] Right: Knee [employer]/O rtho [id number] 06/30/2034 [id number] / / [id number] [employer]/Or tho Legion 10mm Posterior Stabilize High Flexion Knee 7-8 Insert [id number] - [id number] Implanted:Qty: 1 on 12/23/2024 by Parker Santillan MD at [facility] Right: Knee [employer]/O rtho [id number] 08/18/2034 [id number] / / [id number] [employer]/Or tho Nyla Ii Cement Knee Right 7 Baseplate Tibial Titanium [id number] - [id number] Implanted:Qty: 1 on 12/23/2024 by Parker Santillan MD at [facility] Right: Knee [employer]/O rtho [id number] 12/06/2032 [id number] / / [id number] [employer]/Or tho Nyla Ii Legion Spc Posterior Stabilize Knee Right 7 Component [id number] - [id number] Implanted:Qty: 1 on 12/23/2024 by Parker Santillan MD at [facility] Right: Knee [employer]/O rtho [id number] 05/20/2034 [id number] / / [id number] Procedures Procedure Name Priority Date/Time Associated Diagnosis Comments SURGICAL PATHOLOGY Routine 06/10/2025 9: 53 AM CDT Encounter for screening colonoscopy ENDO ADD ON COLON BIOPSY 06/10/2025 9:35 AM CDT Encounter for screening colonoscopy COLON REMOVAL SNARE 06/10/2025 9 :35 AM CDT Encounter for screening colonoscopy COLONOSCOPY 06/10/2025 9:32 AM CDT POC BLOOD GAS AND CHEMISTRIES, VENOUS Routine 06/10/2025 8:18 AM CDT from Last 3 Months Results * Surgical pathology (06/10/2025 9:53 AM CDT) Tissue (Polyp(s), colon/colorectal, esophageal, gastric) 06/10/2025 9:53 AM CDT Tissue specimen (specimen) (Colon, Biopsy) 06/10/2025 9:57 AM CDT Narrative PATHOLOGY [facility] - 06/13/2025 4:08 PM CDT [facility] Department of Pathology [address] [place] [address] Note to Patients: This report may contain a detailed description of human tissue sent by a health care provider to the laboratory for pathologic evaluation. The content of this report is essential for diagnosis and may provide important critical findings. This information may be unfamiliar to patients to review without a medical professional present. It is advised that the patient review this report in the presence of a health care provider who can answer questions and explain the details. Final Report Patient Name: DILLAN MELARA : 1965 (Age: 60) Gender: M Address: [facility] [address] [place] [id number] Hospital #: [id number] Service: Gastro Location: Patient Type: [facility] OUTPATIENT Taken: 06/10/2025 Received: 06/10/2025 Accessioned: 06/10/2025 Reported: 06/13/2025 Physician(s): Aric Villar M.D. Diagnosis: A. Sigmoid colon, polyp, biopsy: - Hyperplastic polyp B. Rectosigmoid colon, polyp, biopsy - Hyperplastic polyp Klaus Flowers M.D. Report Electronically Reviewed and Signed Out By Klaus Flowers M.D. 06/13/2025 16:08:51 Specimen(s) Received: A: Sigmoid colon polyp hot snare B: Recto sigmoid colon polyp biopsy Microscopic Description: Microscopic examination is performed. Microscopic examination is performed. LUMINAL2 Distribution Clinical History: The patient is a 60-year-old man presenting for a colonoscopy screening. Operative procedure: Colon removal snare and colon biopsy. Gross Description Received in two formalin jars labeled with the patient's identifiers. A. Labeled sigmoid colon polyp hot snare and consists of two red-de jesus polypoid tissue fragments measuring 0.2 cm and 0.5 cm. Submitted entirely. Labeled A1. Jar 0. B. Labeled rectosigmoid colon polyp biopsy and consists of a 0.3 cm pink-de jesus polypoid tissue fragment. Submitted entirely. Labeled B1. Jar 0. [facility]/06/10/2025 10:50 DAGOBERTO Barajas Microscopic slide review and interpretation for this case was performed at [facility], Department of Surgical Pathology, [address] [facility], [place] [id number], [place] [address] CLIA # [id number] us Hernan Boogie MD LAB PATHOLOGY ORDERABLES Final R esult PATHOLOGY [facility] * Colonoscopy (06/10/2025 9:32 AM CDT) Anatomical Region Laterality Modality Other Narrative Procedure Note Hernan Boogie MD - 06/10/2025 9:32 AM CDT [facility] GI ENDOSCOPY Patient Name: Dillan Melara Procedure Date: 06/10/2025 9:32 AM Date of : 1965 Admit Type: Outpatient Age: 60 Gender: Male Attending MD: Hernan Boogie M.D. Room: [facility] ENDOSCOPY ROOM 03 Note Status: Finalized Procedure: Colonoscopy Indications: Screening for colorectal malignant neoplasm Referring MD: Providers: Hernan Boogie M.D. Medicines: Monitored Anesthesia Care Complications: No immediate complications. Estimated Blood Loss: Estimated blood loss: none. Procedure: Pre-Anesthesia Assessment: - Prior to the procedure, a History and Physicalwas performed, and patient medications and allergieswere reviewed. The risks and benefits of the procedureand the sedation options and risks were discussed withthe patient. All questions were answered and informed consent was obtained. Patient identification and proposed procedure were verified. After reviewingthe risks and benefits, the patient was deemed in satisfactory condition to undergo the procedure.The anesthesia plan was to use monitored anesthesiacare (MAC). Immediately prior to administration of medications, the patient was re-assessed foradequacy to receive sedatives. The heart rate, respiratory rate, oxygen saturations, blood pressure, adequacyof pulmonary ventilation, and response to care were monitored throughout the procedure. The physical status of the patient was re-assessed after the procedure. The benefits, risks and alternatives of theprocedure and sedation were discussed and informed consentwas obtained. All questions were answered. Please referto the signed informed consent document in the medical record. The scope was passed under direct vision.The [id number]-[id number] colonoscope was introduced through theanus and advanced to the cecum, identified byappendiceal orifice and ileocecal valve. The colonoscopy was performed without difficulty. The patient tolerated the procedure well. The quality of the bowel preparation was adequate. Scope withdrawal time was17 minutes. Prep was administered in a split dose. Findings: The perianal and digital rectal examinations were normal. A 15 mm polyp was found in the sigmoid colon. The polyp was sessile.The polyp was removed with a hot snare. Resection and retrieval were complete. Scattered small-mouthed diverticula were found in the sigmoidcolon. A diminutive polyp was found in the recto-sigmoid colon. The polypwas removed with a cold biopsy forceps. Resection and retrieval were complete. Non-bleeding internal hemorrhoids were found during retroflexion. The hemorrhoids were small. The exam was otherwise without abnormality. Impression: - One 15 mm polyp in the sigmoid colon, removedwith a hot snare. Resected and retrieved. - Diverticulosis in the sigmoid colon. - One diminutive polyp at the recto-sigmoid colon, removed with a cold biopsy forceps. Resected and retrieved. - Non-bleeding internal hemorrhoids. - The examination was otherwise normal. Recommendation: - Patient has a contact number available for emergencies. The signs and symptoms of potential delayed complications were discussed with thepatient. Return to normal activities tomorrow. Written discharge instructions were provided to thepatient. - High fiber diet. - Continue present medications. - Await pathology results. - Repeat colonoscopy in 3 years for surveillance. Hernan Boogie M.D. Hernan Boogie M.D. 06/10/2025 10:01:06 AM . Number of Addenda: 0 Note Initiated On: 06/10/2025 9:32 AM Recognized by the [employer] for promoting quality in endoscopy Hernan Boogie MD ENDOSCOPY PROCEDURES Final Resul t * POC Blood Gas and Chemistries, Venous - (06/10/2025 8:18 AM CDT) pH,hiram POC 7.37 7.32 - 7.43 pCO2, hiram POC 41 40 - 50 mmHg [facility] pO2,hiram POC 55 mmHg [facility] Comment: Interpretive Data No reference range established. Current interpretive data was last revised 2020. HCO3, hiram (Calc) POC 24 20 - 30 mmol/L [facility] Base excess, hiram POC -2 mmol/L [facility] Comment: Interpretive Data No reference range established. Current interpretive data was last revised 2020. Hemoglobin, hiram POC 14.6 13.0 - 17.5 g/dL [facility] Hematocrit, hiram POC 43.0 38.9 - 50.3 % [facility] Sodium, hiram POC 141 135 - 145 mmol/L [facility] Potassium, hiram POC 3.8 3.3 - 4.9 mmol/L [facility] Comment: Interpretive Data This method is not able to assess for hemolysis, which may falsely increase potassium concentrations. If further testing is needed to evaluate this result, consider in-laboratory plasma potassium. Current Interpretive Data was last revised on 2022. Glucose, hiram POC 116 70 - 199 mg/dL [facility] Ionized Calcium, hiram POC 5.00 4.50 - 5.10 mg/dL [facility] Blood 06/10/2025 8:18 AM CDT 06/10/2025 8:18 AM CDT Hernan Boogie MD LAB POCT ORDERABLES - DEVICE Fin al Result Performing Organization Address City/State/[facility] Co de Phone Number [facility] [address] [facility] [place] [address] from Last 3 Months Insurance [facility] CHOICE PLUS Advance Directives For more information, please contact: [phone] * Full Code (Latest Code Status on File) Date Activated Date Inactivated Comments 12/23/2024 1:15 PM 12/24/2024 4:37 PM Care Teams Animal Nursery Worker Relationship Specialty Start Date End Date Yobany Hurd MD [address] [facility] [address] [place] [address] PCP - General Family Medicine 10/14/23 Rachel Abdul MD [address] [facility] [address] [place] [address] Referring Physician Cardiovascular Disease 09/13/24 Parker Santillan MD [address] [address] Consulting Physician Orthopedic Surgery 12/24/24
--- OUTSIDE RECORDS SUMMARY | 2025-06-18 07:50 | XMS_ITS | Encounter Summary ---
Author Organization [facility] Address [address] [place] [address] Care Team Providers Care Candy Catcher Name Role Phone Yobany Hurd MD Primary Care Provider [phone] Rachel Abdul MD Unavailable [phone] Parker Santillan MD Unavailable [phone] Encounter Details Date Type Department Care Team (Latest Contact Info) Description 06/14/2025 Results Follow-Up [facility] Gastroenterology at [address] [place] [address] Hernan Boogie MD [address] [place] [address] Surgical pathology Social History Tobacco Use Types Packs/Day Years Used Date Smoking Tobacco: Never Smokeless Tobacco: Never Alcohol Use Standard Drinks/Week Comments Yes 0 (1 standard drink = 0.6 oz pur e alcohol) [facility] Utilities Answer Date Recorded In the past 12 months has [employer], gas, oil, or water [employer] threatened to shut off services in your [...] week 12/23/2024 How often do you attend [facility] or mosque services? Never 12/23/2024 Do you belong to any clubs o r organizations such as anabaptism groups, unions, fraternal or athletic groups, or [...] any time in the past 12 m [facility], were you homeless or living in a detention (including now)? No 12/23/2024 Personal Safety Answer Date Recorded Have you ever been in or are you currently in a harmful physical or emotional relationship or is someone making you feel afraid or unsafe? 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 Not on file Not on file documented as of this encounter Plan of Treatment Not on file documented as of this encounter Visit Diagnoses Not on filedocumented in this encounter Care Teams Candy Catcher Relationship Specialty Start Date End Date Yobany Hurd MD [address] [facility] [address] [place] [address] PCP - General Family Medicine 10/14/23 Rachel Abdul MD [address] [facility] [address] [place] [address] Referring Physician Cardiovascular Disease 09/13/24 Parker Santillan MD [address] [facility] [address] [place] [address] Consulting Physician Orthopedic Surgery 12/24/24 documented as of this encounter
--- OUTSIDE RECORDS SUMMARY | 2025-06-18 07:50 | XMS_ITS | Clinical Summary ---
Author Organization [facility] Address [address] [place] [address] Care Team Providers Care Cake Cutter Machine Name Role Phone Yobany Hurd MD Primary Care Provider [phone] Allergies Active Allergy Reactions Criticality Noted Date Comments Cefuroxime Rash Medium 05/25/2019 Medications zaleplon 10 MG capsule Take 1 capsule (10 mg total) by mouth nightly. Sleep aid 07/25/2021 Active doxazosin 2 MG tablet Take 1 tablet (2 mg total) by mouth nightly at bedtime. 06/25/2021 Active amLODIPine 10 MG tablet Take 1 tablet (10 mg total) by mouth daily. Active Multiple Vitamin (MULTIVITAMIN ADULT OR) Take 1 tablet by mouth daily. Active gabapentin (NEURONTIN) 600 MG tablet Take 1 tablet (600 mg total) by mouth 2 (two) times daily. Active meloxicam (MOBIC) 15 MG tablet Take 1 tablet (15 mg total) by mouth daily. 02/17/2023 Active clopidogrel (PLAVIX) 75 MG tablet Take 1 tablet (75 mg total) by mouth daily. 90 tablet 03/29/2024 Active sildenafil (VIAGRA) 100 MG tablet Take 1 tablet (100 mg total) by mouth as needed for Erectile Dysfunction. 02/10/2024 Active zaleplon (SONATA) 5 MG capsule Take 1 capsule (5 mg total) by mouth nightly at bedtime. 04/20/2024 Active traMADol (ULTRAM) 50 MG tablet Take 1 tablet (50 mg total) by mouth 4 (four) times daily. 07/19/2024 Active nitroglycerin (NITROSTAT) 0.[address] 1 tablet (0.4 mg total) under the tongue every 5 (five) minutes as needed. Maximum of 3 doses. 25 tablet 07/23/2024 07/23/20 25 Active valsartan (DIOVAN) 160 MG tablet TAKE 1 TABLET TWICE A DAY 180 tablet 1 11/01/2024 Active oxyCODONE-aceta minophen (PERCOCET) 5-325 MG tablet Take 1 tablet by mouth every 6 (six) hours as needed. 01/05/2025 Active Vitamin D3 125 mcg Tab Take 1 tablet (5,000 Units total) by mouth daily. Active MAGNESIUM OR Take 500 mg by mouth daily. Active chlorthalidone (HYGROTEN) 25 MG tablet Take 1 tablet (25 mg total) by mouth daily. 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 [address] Yobany Hurd MD Discharge Disposition: Home or Self Care (Routine Discharge) 05/24/2025 Travel from Last 3 Months Family History Medical History Relation Comments Cancer Father Diabetes Father a-fib Father Heart Attack Maternal Grandmother Diabetes Mother Hypertension Mother Stroke Mother Diabetes Sister Fibromyalgia Sister Hypertension Sister Relation Status Comments Daughter Alive Father (Age 77) Maternal Grandmother (Age 92) Mother (Age 62) Sister Alive Son Alive Social History Tobacco Use Types Packs/Day Years Used Date Smoking Tobacco: Never Smokeless Tobacco: Never Tobacco Cessation:Counseling Given: Not Answered Alcohol Use Standard Drinks/Week Comments Yes 1.7 (1 standard drink = 0.6 oz p ure alcohol) 1-4 cans per week [facility] Utilities Answer Date Recorded In the past 12 months has th e [employer], [employer], oil, or water [employer] threatened to shut off services in your home? No 03/29/2024 Humiliation, Afraid, Rape, and Kick questionnair e Answer Date Recorded Within the last year, have y ou been afraid of your partner or ex-partner? No 03/29/2024 Within the last year, have y ou been humiliated or emotionally abused in other ways by your partner or ex-partner? No Within the last year, have y ou been kicked, hit, slapped, or otherwise physically hurt by your partner or ex-partner? No 03/29/2024 Within the last year, have y ou been raped or forced to have any kind of sexual activity by your partner or ex-partner? No 03/29/2024 Overall Financial Resource Strain (CARDIA) Answe r Date Recorded How hard is it for you to pa y for the very basics like food, housing, medical care, and heating? Not hard at all 03/29/2024 Hunger Vital Sign Answer Date Recorded Within the past 12 months, y ou worried that your food would run out before you got the money to buy more. Never true 03/29/20 24 Within the past 12 months, t he food you bought just didn't last and you didn't have money to get more. Never true 03/29/2024 PRAPARE - Transportation Answer Date Re corded In the past 12 months, has l ack of transportation kept you from medical appointments or from getting medications? No 03/02 In the past 12 months, has l ack of transportation kept you from meetings, work, or from getting things needed for daily living? No 03/29/2024 Housing Stability Vital Sign Answer Romario e Recorded In the last 12 months, was t here a time when you were not able to pay the mortgage or rent on time? No 03/29/2024 In the past 12 months, how m any times have you moved where you were living? 1 03/29/2024 At any time in the past 12 m [facility], were you homeless or living in a senior care (including now)? 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 file Not on file Not o n file Last Filed Vital Signs Vital Sign Reading Time Taken Comments Blood Pressure 122/68 01/07/2025 2:03 PM CRYSTALLIZER OPERATOR LUCAS EN BY Pulse 103 01/07/2025 1:52 PM CRYSTALLIZER OPERATOR Temperature 37 C (98.6 F) 03/30/2024 9:02 PM CDT Respiratory Rate 14 03/30/2024 3:38 PM CDT Oxygen Saturation 95% 01/07/2025 1:52 PM CRYSTALLIZER OPERATOR Inhaled Oxygen Concentration - - Weight 130.6 kg (288 lb) 01/07/2025 1:52 PM CRYSTALLIZER OPERATOR Height 188 cm (6' 2) 01/07/2025 1:52 PM CRYSTALLIZER OPERATOR Body Mass Index 36.98 01/07/2025 1:52 PM CRYSTALLIZER OPERATOR Plan of Treatment Upcoming Encounters Date Type Department Care Team (Late st Contact Info) Description 07/15/2025 2:00 PM CDT Office Visit [facility], [address] [place] [address] Dee Dee Morrison PA-C [address] [facility], [address] [place], [place] [id number] Health Maintenance Due Date Last Done Comments Colorectal Cancer Screening Colonoscopy (10 Years) 1966 Annual Physical 1969 Hepatitis C 1984 DTaP, Tdap and Td Vaccines ( 1 - Tdap) 1985 Hepatitis B Vaccines (1 of 3 - 19+ 3-dose series) 1985 Pneumococcal Vaccine: 50+ Years (1 of 2 - PCV) 1985 Zoster Vaccines (1 of 2) 2016 COVID-19 Vaccine (3 - 2023-2 5 season) 2024 02/10/2021, 01/13/2021 Meningococcal B Vaccine Aged Out No l onger eligible based on patient's age to complete this topic Meningococcal Vaccine Aged Out No panda mayra eligible based on patient's age to complete this topic RSV Immunizations Under 20 Months Aged Out No longer eligible b ased on patient's age to complete this topic Goals Goal Patient Goal Type Associated Problems Recent Progress Patient-Stated? Author Safety - demonstrates understanding of home safety measures General No Hollie Ballesteros grounds restoration specialist - family caregiver with be involved in care transitions and discharge planning Lifestyle No Aly Rendon RN Medical Devices Implanted Type Area Double Head Machine Operator Device Identifier Shelf Expiration Date Model / Serial / Lot Sst Tl 50 Rob Implanted:Qty: 2 on 09/05/2021 by Maureen Conte MD at [facility] Rob N/A: Spine Lumbar [id number] / / Screw Sst Tl 6.5x45 Implanted:Qty: 2 on 09/05/2021 by Maureen Conte MD at [facility] Screw N/A: Spine Lumbar -45 / / Screw Sst Tl 6.5x40 Implanted:Qty: 2 on 09/05/2021 by Maureen Conte MD at [facility] Screw N/A: Spine Lumbar [id number] / / Sst Tl Setscrew Implanted:Qty: 4 on 09/05/2021 by Maureen Conte MD at [facility] Screw N/A: Spine Lumbar 01-SETSCREW / / Corelink Interbody Implanted:Qty: 2 on 09/05/2021 by Maureen Conte MD at [facility] Bilateral: Spine Lumbar [id number] 12/13/2024 [id number] / / [id number] Explanted Type Area Double Head Machine Operator Device Identifier Shelf Expiration Date Model / Serial / Lot Bur Drill Neuro Ami 3.0mm X 3.8mm - [id number] Explanted:Qty: 1 on 09/05/2021 at [facility] Drill N/A: Spine Lumbar [employer]I [employer] - DIV AMI JANNA [id number] / / Procedures Procedure Name Priority Date/Time Associated Diagnosis Comments US THYROID Routine 05/24/2025 4:05 PM CDT Nontoxic single thyroid nodule from Last 3 Months Results * US THYROID (05/24/2025 4:05 PM CDT) Anatomical Region Laterality Modality Neck Ultrasound 06/01/2025 7:24 AM CDT Impressions 06/01/2025 7:25 AM CDT IMPRESSION: ===== 1. Bilateral nodules as above. No individual nodule meets TIRADS threshold recommend follow-up or FNA. 2. No acute abnormalities Referred By: YOBANY HURD Interpreted By: Alex Gilman MD, 06/01/2025 7:24 AM Narrative 06/01/2025 7:25 AM CDT [address] [address] EXAMINATION: Thyroid ultrasound EXAM DATE/TIME: 05/24/2025 3:38 PM REASON FOR EXAM: Thyroid nodule Follow-up thyroid nodules COMPARISON: 03/01/2024 thyroid ultrasound TECHNIQUE: Transcutaneous ultrasound evaluation of the thyroid bed was performed for analysis of grayscale and color Doppler imaging characteristics. FINDINGS: The right thyroid lobe measures 5.4 x 2.4 x 2.4 cm. The left thyroid lobe measures 4.8 x 2.1 x 2.0 cm. The isthmus measures 6.5 mm in thickness. 8 x 8 x 6 mm wider than tall fairly well demarcated hypoechoic solid nodule in the right thyroid. No shadowing calcifications. TIRADS 4 nodule. No follow-up indicated due to size under 1 cm. 4 x 3 x 3 mm wider than tall mixed echogenicity solid nodule in the lateral left thyroid. No shadowing calcifications. Most of the nodule is hypoechoic. TIRADS 4 nodule. No follow-up indicated due to size under 1 cm. Remainder of thyroid tissue has homogeneous grayscale appearance with no abnormal flow on Doppler imaging. No surrounding abnormal fluid collections or lymphadenopathy. ===== Procedure Note Alex Gilman MD - 06/01/[address] [address] EXAMINATION: Thyroid ultrasound EXAM DATE/TIME: 05/24/2025 3:38 PM REASON FOR EXAM: Thyroid nodule Follow-up thyroid nodules COMPARISON: 03/01/2024 thyroid ultrasound TECHNIQUE: Transcutaneous ultrasound evaluation of the thyroid bed wasperformed for analysis of grayscale and color Doppler imagingcharacteristics. FINDINGS: The right thyroid lobe measures 5.4 x 2.4 x 2.4 cm. The left thyroid lobemeasures 4.8 x 2.1 x 2.0 cm. The isthmus measures 6.5 mm in thickness. 8x 8 x 6 mm wider than tall fairly well demarcated hypoechoic solid nodulein the right thyroid. No shadowing calcifications. TIRADS 4 nodule. Nofollow-up indicated due to size under 1 cm. 4 x 3 x 3 mm wider than tall mixed echogenicity solid nodule in thelateral left thyroid. No shadowing calcifications. Most of the nodule ishypoechoic. TIRADS 4 nodule. No follow-up indicated due to size under 1cm. Remainder of thyroid tissue has homogeneous grayscale appearance with noabnormal flow on Doppler imaging. No surrounding abnormal fluidcollections or lymphadenopathy. ===== IMPRESSION: ===== 1. Bilateral nodules as above. No individual nodule meets TIRADSthreshold recommend follow-up or FNA. 2. No acute abnormalities Referred By: YOBANY HURD Interpreted By: Alex Gilman MD, 06/01/2025 7:24 AM Yobany Hurd MD ULTRASOUND Final Result from Last 3 Months Insurance [facility] Advance Directives * Full Code (Latest Code Status on File) Date Activated Date Inactivated Comments 03/30/2024 5:40 PM 03/30/2024 11:40 PM * Full Code Date Activated Date Inactivated Comments 03/29/2024 5:54 PM 03/30/2024 5:40 PM * Full Code Date Activated Date Inactivated Comments 03/25/2024 11:53 AM 03/25/2024 6:07 PM Care Teams Cake Cutter Machine Relationship Specialty Start Date End Date Yobany Hurd MD [address] [place] [address] PCP - General STUDENT 08/31/22
--- OUTSIDE RECORDS SUMMARY | 2025-06-18 07:50 | XMS_ITS | Encounter Summary ---
Author Organization [facility] Address [address] [place] [address] Care Team Providers Care Newspaper Photojournalist Name Role Phone Ousmane Victoria MD Primary Care Provider [phone] Yobany Hurd MD Primary Care Provider [phone] Encounter Details Date Type Department Care Team (Late st Contact Info) Description 07/09/2022 Abstract [facility] [address] Pat Godinez MA Social History Tobacco Use Types Packs/Day Years Used Date Smoking Tobacco: Never Smokeless Tobacco: Never Alcohol Use Standard Drinks/Week Comments Yes 0 (1 standard drink = 0.6 oz pur e alcohol) occasionally Sex and Gender Information Value Date Recorded Sex Assigned at Male 01/07/2025 1:45 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 No / Unsure 07/12/2022 7:31 AM CDT documented as of this encounter Functional Status * RETIRED Are you deaf or do you have serious difficulty hearing Answer Date of Assessment Author Status No 09/05/2021 3:12 PM CDT Activ e * RETIRED Are you blind or do you have serious difficulty seeing, even when wearing glasses? Answer Date of Assessment Author Status No 09/05/2021 3:12 PM CDT Activ e * Do you have serious difficulty walking or climbing stairs? Answer Date of Assessment Author Status No 09/05/2021 3:12 PM CDT Josette Gilbert RN Active * Do you have difficulty dressing or bathing? Answer Date of Assessment Author Status No 09/05/2021 3:12 PM CDT Josette Gilbert RN Active * Because of a physical, mental, or emotional condition, do you have difficulty doing errands alone such as visiting a doctor's office or shopping? Answer Date of Assessment Author Status No 09/05/2021 3:12 PM CDT Josette Gilbert RN Active documented as of this encounter Mental Status * Because of a physical, mental, or emotional condition, do you have serious difficulty concentrating, remembering, or making decisions? Answer Entry Date Author Status No 09/05/2021 3:12 PM CDT Josette Gilbert RN Active documented in this encounter Plan of Treatment Upcoming Encounters Date Type Department Care Team (Late st Contact Info) Description 07/15/2025 2:00 PM CDT [facility], [address] [place], [place] [id number] Dee Dee Morrison PA-C [address] [facility], [address] [place], [place] [id number] documented as of this encounter Goals Goal Patient Goal Type Associated Problems Recent Progress Patient-Stated? Author Safety - demonstrates understanding of home safety measures General No Hollie Ballesteros RN documented as of this encounter Procedures Procedure Name Priority Date/Time Associated Diagnosis Comments COMPREHENSIVE METABOLIC PANEL Routine 09/18/2024 LIPID PANEL Routine 09/18/2024 CBC, MANUAL DIFF Routine 09/18/2024 THYROXINE, FREE (FT4) Routine 09/18/2024 COMPREHENSIVE METABOLIC PANEL Routine 03/29/2024 CBC, MANUAL DIFF Routine 03/29/2024 CBC, MANUAL DIFF Routine 01/03/2024 PROSTATE SPECIFIC ANTIGEN,TOTAL Routine 02/04/2023 COMPREHENSIVE METABOLIC PANEL Routine 02/04/2023 LIPID PANEL Routine 02/04/2023 NT-PRO BNP VISTA Routine 10/07/2022 LIPOPROTEIN A Routine 10/07/2022 BASIC METABOLIC PANEL Routine 10/07/2022 NT-PRO BNP VISTA Routine 09/09/2022 LIPID PANEL Routine 09/09/2022 THYROXINE, FREE (FT4) Routine 09/09/2022 THYROID STIM HORMONE TSH Routine 09/09/2022 PROSTATE SPECIFIC ANTIGEN,TOTAL Routine 01/26/2022 COMPREHENSIVE METABOLIC PANEL Routine 01/26/2022 LIPID PANEL Routine 01/26/2022 NT-PRO BNP VISTA Routine 06/04/2019 documented in this encounter Results * COMPREHENSIVE METABOLIC PANEL (09/18/2024) SODIUM S/P/B 141 GLUCOSE 116 mg/dL BUN 13 CREATININE S/P/B 0.93 0.7 - 1.3 CALCIUM S/P/B 9.1 POTASSIUM S/P/B 4.1 CHLORIDE S/P/B 103 GFR ESTIMATE >60 us Default History Genericprovider LABORATORY Edited Result - Final * LIPID PANEL (09/18/2024) CHOLESTEROL 97 TRIGLYCERIDES 75 HDL 45 LDL (CALCULATED) 37 Default History Genericprovider LABORATORY Edited Result - Final * CBC, MANUAL DIFF (09/18/2024) WBC 5.0 HGB 13.6 HCT [address] [facility] Genericprovider LABORATORY Edited Result - Final * THYROXINE, FREE (FT4) (09/18/2024) Pathologist [facility] FREE T4 0.71 [facility] Genericprovider LABORATORY Edited Result - Final * COMPREHENSIVE METABOLIC PANEL (03/29/2024) Pathologist [facility] BUN 18 CREATININE S/P/B 0.99 0.7 - 1.[address] [facility] Genericprovider LABORATORY Edited Result - Final * CBC, MANUAL DIFF (03/29/2024) Pathologist [facility] HGB 13.[address] [facility] Genericprovider LABORATORY Edited Result - Final * CBC, MANUAL DIFF (01/03/2024) Pathologist [facility] WBC 5.0 HGB 13.4 HCT 40.[address] [facility] Genericprovider LABORATORY Edited Result - Final * COMPREHENSIVE METABOLIC PANEL (02/04/2023) Pathologist [facility] SODIUM S/P/B 141 POTASSIUM S/P/B 4.1 CO2 23 CHLORIDE S/P/B 103 GLUCOSE 100 mg/dL CALCIUM S/P/B 9.1 BUN 23 CREATININE S/P/B 1.14 0.7 - 1.3 EGFR NON-AFR. AMER. 75 <=90 ALKALINE PHOSPHATASE S/P/B 58 ALT 38 AST 29 BILIRUBIN TOTAL S/P/B 0.5 ALBUMIN S/P/B 4.7 3.5 - 5.0 TOTAL PROTEIN S/P/B 6.8 GLOBULIN 2.1 02/04/2023 [facility] History Genericprovider LABORATORY Edited Result - Final * LIPID PANEL (02/04/2023) Pathologist [facility] CHOLESTEROL 101 HDL 36 TRIGLYCERIDES 116 LDL (CALCULATED) 44 02/04/2023 [facility] History Genericprovider LABORATORY Edited Result - Final * PROSTATE SPECIFIC ANTIGEN,TOTAL (02/04/2023) Pathologist [facility] PSA 0.9 02/04/2023 [facility] History Genericprovider LABORATORY Edited Result - Final * Nt-Pro Bnp Cosmos (10/07/2022) Pathologist [facility] PRO-BRAIN NATRIURETIC PEPTIDE 18 10/07/[address] [facility] Genericprovider GENERAL SUPPLY & EQUIPMENT ORDERABLES Final Result * LIPOPROTEIN A (10/07/2022) Pathologist [facility] LIPOPROTEIN (A) 26 <75 10/07/[address] [facility] Genericprovider LABORATORY Final Result * BASIC METABOLIC PANEL (10/07/2022) Pathologist [facility] SODIUM S/P/B 140 POTASSIUM S/P/B 4.0 CO2 29 CHLORIDE S/P/B 105 GLUCOSE 113 mg/dL CALCIUM S/P/B 8.8 BUN 19 CREATININE S/P/B 0.89 0.7 - 1.3 EGFR NON-AFR. AMER. >60 <=90 10/07/2022 [facility] History Genericprovider LABORATORY Final Result * Nt-Pro Bnp Cosmos (09/09/2022) Pathologist [facility] PRO-BRAIN NATRIURETIC PEPTIDE 23 09/09/2022 [facility] History Genericprovider GENERAL SUPPLY & EQUIPMENT ORDERABLES Final Result * LIPID PANEL (09/09/2022) Pathologist [facility] CHOLESTEROL 144 HDL 41 TRIGLYCERIDES 109 LDL (CALCULATED) 81 09/09/2022 [facility] Edited Result - Final * THYROXINE, FREE (FT4) (09/09/2022) Pathologist [facility] FREE T4 0.86 09/09/2022 Result [facility] LAB[facility]ATORY Final Result * THYROID STIM HORMONE, TSH (09/09/2022) Pathologist [facility] TSH 1.21 09/09/2022 Result [facility] LAB[facility]ATORY Final Result * PROSTATE SPECIFIC ANTIGEN,TOTAL (01/26/2022) Pathologist [facility] PSA 1.4 01/26/2022 [facility] LABORATORY Final Result * LIPID PANEL (01/26/2022) Pathologist [facility] CHOLESTEROL 131 HDL 38 TRIGLYCERIDES 37 LDL (CALCULATED) 86 01/26/2022 [facility] LABORATORY Final Result * COMPREHENSIVE METABOLIC PANEL (01/26/2022) Pathologist [facility] SODIUM S/P/B 142 POTASSIUM S/P/B 4.6 CO2 26 CHLORIDE S/P/B 108 GLUCOSE 108 mg/dL CALCIUM S/P/B 8.8 BUN 20 CREATININE S/P/B 0.90 0.7 - 1.3 EGFR NON-AFR. AMER. >60 <=90 ALKALINE PHOSPHATASE S/P/B 55 ALT 42 AST 23 BILIRUBIN TOTAL S/P/B 0.3 ALBUMIN S/P/B 4.0 3.5 - 5.0 TOTAL PROTEIN S/P/B 6.8 01/26/2022 us Doc [facility] LABORATORY Edited Resul t - Final * Nt-Pro Bnp Cosmos (06/04/2019) PRO-BRAIN NATRIURETIC PEPTIDE Comment:error,deleted 06/04/2019 us Default History Genericprovider GENERAL SUPPLY & EQUIPMENT ORDERABLES Edited Result - Final documented in this encounter Visit Diagnoses Not on filedocumented in this encounter Care Teams Newspaper Photojournalist Relationship Specialty Start Date End Date Ousmane Victoria MD PCP - General FAMILY PRACTICE 08/21/21 08/30/22 Yobany Hurd MD [address] [place] [address] PCP - General STUDENT 08/31/22 documented as of this encounter
--- OUTSIDE RECORDS SUMMARY | 2025-06-18 07:50 | XMS_ITS | Referral Summary ---
Author Organization [facility] Address [address] [place] [address] Care Team Providers Care Emissions Inspector Name Role Phone Yobany Hurd MD Primary Care Provider [phone] Rachel Abdul MD Unavailable [phone] Parker Santillan MD Unavailable [phone] Encounters Date Type Department Care Team Description 06/14/2025 Results Follow-Up [facility] Gastroenterology at [place] [id number] [facility] [address] [place] [id number] Hernan Boogie MD Surgical pathology 06/10/2025 9:34 AM CDT Anesthesia Event [facility] [address] [place] [address] Steven Gaspar, 06/10/2025 8:30 AM CDT - 06/10/2025 9:00 AM CDT Surgery [facility] [address] [place] [address] Hernan Boogie MD COLON REMOVAL SNARE 06/10/2025 7:02 AM CDT - 06/10/2025 10:54 AM CDT Hospital Encounter [facility] [address] [place] [address] Hernan Boogie MD Encounter for screening colonoscopy Discharge Disposition: Discharge to home or self care 05/23/2025 Telephone [facility] Orthopedics and Sports Medicine [facility] [facility] [address] [place] [address] Parker Santillan MD Dental Problem 05/16/2025 Orders Only [facility] Gastroenterology at [address] [place] [address] Hernan Boogie MD Encounter for screening colonoscopy (Primary Dx) from Last 3 Months Allergies Active Allergy [...] as needed for chest pain 4 07/23/20 Active oxyCODONE-acet aminophen (PERCOCET) 5-325 mg per [...] knee 10/25/2024 S/P percutaneous translumina l angioplasty (ENVIRONMENTAL AID) with stent placement 07/22/2024 Carpal tunnel syndrome, [...] drink = 0.6 oz pur e alcohol) [facility] Utilities Answer Date Recorded In the past 12 months has e [employer], gas, oil, or water [employer] threatened to shut off services in your home? No 12/23/2024 Social Connection and Isolation Panel [NHANES] A nswer Date Recorded In a typical week, how many times do you talk on the phone with family, friends, or neighbors? Three times a week 01/23/20 25 How often do you get togethe r with friends or relatives? Three times a week 12/23/2024 How often do you attend chur ch or advent services? Never 12/23/2024 Do you belong to any clubs o r organizations such as jehovah's witness groups, unions, fraternal or athletic groups, or [...] any time in the past 12 m [facility], were you homeless or living in a alf (including now)? No 12/23/2024 Personal Safety Answer Date Recorded Have you ever been in or are you currently in a harmful physical or emotional relationship or is someone making you feel afraid or unsafe? 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 fi le Not on file [...] 188 cm (6' 2) 01/21/2025 10:11 AM SENIOR SUPPORT ENGINEER Body Mass Index 34.02 01/21/2025 10:11 AM SENIOR SUPPORT ENGINEER Plan of Treatment Not on file Medical Devices Implanted Type Area Hospice Nurse Device Identifier Shelf Expiration Date Model / Serial / Lot Stent Heart Cage And Hardware Back [employer] Simplex P Radiopaque Full Dose Cement Bone Sterile 6191-1-010 - [id number] Implanted:Qty: 1 on 12/23/2024 by Parker Santillan MD at [facility] Right: Knee [employer] 11/30/2026 6191-1-010 / / [id number] [employer]Or tho Nyla Ii 35mm Resurface Component Patellar [id number] - [id number] Implanted:Qty: 1 on 12/23/2024 by Parker Santillan MD at [facility] Right: Knee [employer] r[employer]o [id number] 06/30/2034 [id number] / / [id number] [employer]Or tho Legion 10mm Posterior Stabilize High Flexion Knee 7-8 Insert [id number] - [id number] Implanted:Qty: 1 on 12/23/2024 by Parker Santillan MD at [facility] Right: Knee [employer]o [id number] 08/18/2034 [id number] / / [id number] [employer]/Or tho Nyla Ii Cement Knee Right 7 Baseplate Tibial Titanium [id number] - [id number] Implanted:Qty: 1 on 12/23/2024 by Parker Santillan MD at [facility] Right: Knee [employer] [id number] 12/06/2032 [id number] / [id number] [employer]Or tho Nyla Ii Legion Spc Posterior Stabilize Knee Right 7 Component [id number] - [id number] Implanted:Qty: 1 on 12/23/2024 by Parker Santillan MD at [facility] Right: Knee [employer] [id number] 05/20/2034 [id number] / [id number] Procedures Procedure Name Priority Date/Time Associated Diagnosis [...] Biopsy) 06/10/2025 9:57 AM CDT Narrative PATHOLOGY [facility] - 06/13/2025 4:08 PM CDT [facility] Department of Pathology [address] [place] [address] Note to Patients: This report may contain [...] explain the details. Final Report Patient Name: HUA MELARA : 1965 (Age: 60) Gender: M Address: [address] [place] [id number] Hospital #: [id number] Service: Gastro Location: Patient Type: [facility] OUTPATIENT Taken: 06/10/2025 Received: 06/10/2025 Accessioned: 06/10/2025 [...] examination is performed. Microscopic examination is performed. MHLUMINAL Distribution Clinical History: The patient is a [...] fragment. Submitted entirely. Labeled B1. Jar 0. [facility]/06/10/2025 10:50 DAGOBERTO Barajas Microscopic slide review and interpretation for this case was performed at [facility], Department of Surgical Pathology, [address] [facility] [place] [place] [id number], [place] [address] CLIA # [id number] us Hernan Boogie MD LAB PATHOLOGY ORDERABLES Final R esult PATHOLOGY [facility] * Colonoscopy (06/10/2025 9:32 AM CDT) Anatomical Region Laterality Modality Other Narrative Procedure Note Hernan Boogie MD - 06/10/2025 9:[address] [facility] ENDOSCOPY Patient Name: Hua Melara Procedure Date: 06/10/2025 9:32 AM Date of : 1965 Admit Type: Outpatient Age: 60 Gender: Male Attending MD: Hernan Boogie M.D. Room: [facility] ENDOSCOPY ROOM 03 Note Status: Finalized [...] The scope was passed under direct vision.The [id number]-[id number] colonoscope was introduced through theanus and advanced [...] On: 06/10/2025 9:32 AM Recognized by the [employer] for promoting quality in endoscopy Hernan Boogie MD ENDOSCOPY PROCEDURES Final Resul t * POC Blood Gas and Chemistries, Venous - (06/10/2025 8:18 AM CDT) pH,hiram POC 7.37 7.32 - 7.43 pCO2, hiram POC 41 40 - 50 mmHg [facility] pO2,hiram POC 55 mmHg [facility] Comment: Interpretive Data No reference range established. Current interpretive data was last revised 2020. HCO3, hiram (Calc) POC 24 20 - 30 mmol/L [facility] Base excess, hiram POC -2 mmol/L [facility] Comment: Interpretive Data No reference range established. Current interpretive data was last revised 2020. Hemoglobin, hiram POC 14.6 13.0 - 17.5 g/dL [facility] Hematocrit, hiram POC 43.0 38.9 - 50.3 % [facility] Sodium, hiram POC 141 135 - 145 mmol/L [facility] Potassium, hiram POC 3.8 3.3 - 4.9 mmol/L [facility] Comment: Interpretive Data This method is not able to assess for hemolysis, which may falsely increase potassium concentrations. If further testing is needed to evaluate this result, consider in-laboratory plasma potassium. Current Interpretive Data was last revised on 2022. Glucose, hiram POC 116 70 - 199 mg/dL [facility] Ionized Calcium, hiram POC 5.00 4.50 - 5.10 mg/dL [facility] Blood 06/10/2025 8:18 AM CDT 06/10/2025 8:18 AM CDT Hernan Boogie MD LAB POCT ORDERABLES - DEVICE Fin al Result [facility] [address] [facility] Department [place] [address] from Last 3 Months Insurance [facility] H[facility]/PPO Address: [address] [address] [place] [address] CHOICE PLUS [facility] HMO/PPO Address: [address] [address] [place] [phone] Advance Directives For more information, please contact: [phone] * Full Code (Latest Code Status on File) Date Activated Date Inactivated Comments 12/23/2024 1:15 PM 12/24/2024 4:37 PM Care Teams Emissions Inspector Relationship Specialty Start Date End Date Yobany Hurd MD [address] [facility] [address] [place] [address] PCP - General Family Medicine 10/14/23 Rachel Abdul MD [address] [facility] [address] [place] [address] Referring Physician Cardiovascular Disease 09/13/24 Parker Santillan MD [address] [address] Consulting Physician Orthopedic Surgery 12/24/24
[2025-06-18 08:27] LABS: Hemoglobin A1C 6.0 % (<5.7)
== END 2025-06-18 07:47 | disposition home or self-care (01) ==
LOC: CHSLAB 07:48
PROVIDERS: PCP Family Medicine; Visit Provider Family Medicine
DX: R73.09 Other abnormal glucose (principal)
CPT/HCPCS: 36415; 83036